=== PATIENT | male | born 2000 | race Caucasian/White ===

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

== ENCOUNTER 2019-02-24 12:28 | Emergency (ER) | payer OTHER ==
[2019-02-24 13:20] LABS: BASOPHILE ABSOLUTE 0.1 Th/cumm (0-0.2); EOSINOPHILE ABSOLUTE 1.3 Th/cmm (0.1-0.4); LYMPHOCYTE ABSOLUTE 1.9 Th/cmm (1.5-3.0); MEAN CORPUSCULAR HEMOGLOBIN 25.8 pg (26.0-30.0); MONOCYTE ABSOLUTE 1.1 Th/cmm (0.3-1.0); NEUTROPHILE ABSOLUTE 6.3 Th/cmm (1.8-8.0); WHITE BLOOD COUNT 10.7 Th/cmm (4.8-10.8)
[2019-02-24 13:22] LABS: % BASOPHILS 0.9 % (0.0-2.0); % EOSINOPHILS 12.4 % (0.0-5.0); % LYMPHOCYTES 17.9 % (20.0-50.0); % MONOCYTES 10.3 % (2.0-10.0); % NEUTROPHILS 58.5 % (40.0-80.0); HEMATOCRIT 37.2 % (41.0-60); HEMOGLOBIN 12.2 gm/dL (12-16); MEAN CELL VOLUME 78.6 fl (80-99); MEAN CORPUSCULAR HGB CONC 32.8 pg (28.0-36.0); MEAN PLATELET VOLUME 7.8 fl; PLATELET COUNT 413 Th/cmm (150-400); RED BLOOD COUNT 4.73 Mil/cmm (4.30-5.70)
[2019-02-24 13:35] LABS: INR 0.95 (0.5-1.4); PROTHROMBIN TIME (TEST) 9.9 SECONDS (9.5-11.5)
[2019-02-24 13:41] LABS: ALB/GLOB RATIO 1.2 (1.0-1.8); ALBUMIN 3.9 gm/dL (4.2-5.5); ALKALINE PHOSPHATASE 42 U/L (34-104); ANION GAP 11.3 (7.0-16.0); BILIRUBIN,TOTAL 0.2 mg/dL (0.3-1.0); BUN - UREA NITROGEN 6 mg/dL (7-25); CALCIUM SERUM 9.2 mg/dL (8.6-10.3); CARBON DIOXIDE 28.4 mEq/L (21.0-31.0); CHLORIDE 102 mEq/L (98-107); CHOLESTEROL 121 mg/dL (<200); CREATININE - SERUM 0.6 mg/dL (0.7-1.3); GFR AFRICAN-AMERICAN > 60.0 ml/min (>90); GFR NON AFRICAN-AMERICAN > 60.0 ml/min; GLUCOSE 94 mg/dL (70-105); HDL -HIGH DENSITY LIPOPROTEIN 35 mg/dL (23-92); POTASSIUM SERUM 3.7 mEq/L (3.5-5.1); SGOT 24 U/L (13-39); SGPT/ALT 49 U/L (7-52); SODIUM SERUM 138 mEq/L (136-145); TOTAL PROTEIN,SERUM 7.1 gm/dL (6.0-8.3); TRIGLYCERIDES 121 mg/dL (<150)
[2019-02-24 14:05] LABS: URINE SOURCE CLEAN C
[2019-02-24 14:08] LABS: URINE BILIRUBIN NEGATIVE (NEGATIVE); URINE BLOOD NEGATIVE (NEGATIVE); URINE GLUCOSE (UA) NEGATIVE (NEGATIVE); URINE KETONE TRACE mg/dL (NEGATIVE); URINE LEUKOCYTE ESTERASE NEGATIVE (NEGATIVE); URINE MICROSCOPIC INDICATED? YES; URINE NITRATE NEGATIVE (NEGATIVE); URINE PH 6.5 (4.6 - 8.0); URINE PROTEIN TRACE mg/dL (NEGATIVE); URINE UROBILINOGEN 0.2 E.U./dL (0.2 - 1.0)
[2019-02-24 14:13] LABS: URINE CLARITY SLIGHT CLOUDY (CLEAR); URINE COLOR YELLOW
[2019-02-24 14:19] LABS: URINE BACTERIA FEW /hpf (NONE SEEN); URINE EPITHELIAL CELLS OCCASIONAL /lpf (FEW); URINE RBC 0-2 /hpf (0-5)
[2019-02-24 14:22] LABS: AMPHETAMINE URINE NEGATIVE (NEGATIVE); BARBITURATES URINE NEGATIVE (NEGATIVE); BENZODIAZEPINES QUAL URINE NEGATIVE (NEGATIVE); CANNABINOID THC NEGATIVE (NEGATIVE); COCAINE METABOLITE QUAL URINE NEGATIVE (NEGATIVE); METHADONE URINE NEGATIVE (NEGATIVE); METHAMPHETAMINES QUAL URINE NEGATIVE (NEGATIVE); OPIATES (MORPHINE) QUAL. URINE NEGATIVE (NEGATIVE); PHENCYCLIDINE (PCP) URINE NEGATIVE (NEGATIVE); TRICYCLICS (TCA) QUAL. URINE NEGATIVE (NEGATIVE)
--- NOTE | 2019-02-24 14:36 | ED Physician Chart ---
ED Chief Complaint/HPI - Patient Information Date Seen:: 02/24/19 Time Seen:: 12:58 History of Present Illness:: diarrhea Allergies:: Allergies Allergy/AdvReac Type Severity Reaction Status Date / Time No Known Allergies Allergy Verified 02/24/19 12:46 Vitals:: Vital Signs - 8 hr 02/24/19 02/24/19 12:46 14:26 Temp 100.1 F 98.9 F HR 88 75 RR 18 13 BP 134/61 130/72 O2 Sat % 97 98 Historian:: Patient Review:: Nurse's Note Reviewed ED Review of Systems - Review of Systems General/Constitutional: No fever, No chills, No weight loss, No weakness, No diaphoresis, No edema, No loss of appetite, Other (this patient is mentally challanged) Skin: No skin lesions, No rash, No bruising Head: No headache, No light-headedness Eyes: No loss of vision, No pain, No diplopia ENT: No earache, No nasal drainage, No sore throat, No tinnitus Neck: No neck pain, No swelling, No thyromegaly, No stiffness, No mass noted Cardio Vascular: No chest pain, No palpitations, No PND, No orthopnea, No edema Pulmonary: No SOB, No cough, No sputum, No wheezing GI: No nausea, No vomiting, No diarrhea, No pain, No melena, No hematochezia, No constipation, No hematemesis G/U: No dysuria, No frequency, No hematuria Musculoskeletal: No bone or joint pain, No back pain, No muscle pain Endocrine: No polyuria, No polydipsia Psychiatric: No prior psych history, No depression, No anxiety, No suicidal ideation Hematopoietic: No bruising, No lymphadenopathy Allergic/Immuno: No urticaria, No angioedema Neurological: No syncope, No focal symptoms, No weakness, No paresthesia, No headache, No seizure, No dizziness, No confusion, No vertigo ED Past Medical History - Past Medical History Obtainable: Yes Past Medical History: Other (obese and mental) Family History: None Social History: Non Smoker, No Alcohol, No Drug Use, Lives With Parents Surgical History: None Psychiatricy History: Dementia Medication: Reviewed Family Medical History - Family Member Mother History Unknown: Yes Ethnicity: Living Status: Still Living Other Medical History: No known family medical problems per mother. ED Physical Exam - Physical Examination General/Constitutional: Awake, Well-developed, well-nourished, Alert, No distress, GCS 15, Non-toxic appearing, Ambulatory Other Gen/Cons comments:: obese and confused at times Head: Atraumatic Eyes: Lids, conjuctiva normal, PERRL, EOMI Skin: Nl inspection, No rash, No skin lesions, No ecchymosis, Well hydrated, No lymphadenopathy ENMT: External ears, nose nl, Nasal exam nl, Lips, teeth, gums nl Neck: Nontender, Full ROM w/o pain, No JVD, No nuchal rigidity, No bruit, No mass, No stridor Respiratory: Nl effort/Exclusion, Clear to Auscultation, No Wheeze/Rhonchi/Rales Cardio Vascular: RRR, No murmur, gallop, rubs, NL S1 S2 GI: No tenderness/rebounding/guarding, No organomegaly, No hernia, Normal BS's, Nondistended, No mass/bruits, No McBurney tenderness : No CVA tenderness Extremities: No tenderness or effusion, Full ROM, normal strength in all extremities, No edema, Normal digits & nails Neuro/Psych: Alert/oriented, DTR's symmetric, Normal sensory exam, Normal motor strength, Judgement/insight normal, Mood normal, Normal gait, No focal deficits Misc: Normal back, No paraspinal tenderness ED Labs/Radiology/EKG Results - Lab Results Results: Laboratory Tests 02/24/19 02/24/19 02/24/19 13:15 13:15 13:15 WBC 10.7 RBC 4.73 Hgb 12.2 Hct 37.2 L MCV 78.6 L MCH 25.8 L MCHC Differential 32.8 RDW 13.0 Plt Count 413 H MPV 7.8 Neutrophils % 58.5 Lymphocytes % 17.9 L Monocytes % 10.3 H Eosinophils % 12.4 H Basophils % 0.9 PT INR PTT (Actin FS) Sodium 138 Potassium 3.7 Chloride 102 Carbon Dioxide 28.4 Anion Gap 11.3 BUN 6 L Creatinine 0.6 L Est GFR ( Amer) > 60.0 Est GFR (Non-Af Amer) > 60.0 BUN/Creatinine Ratio 10.0 Glucose 94 Calcium 9.2 Total Bilirubin 0.2 L AST 24 ALT 49 Alkaline Phosphatase 42 Total Protein 7.1 Albumin 3.9 L Globulin 3.2 Albumin/Globulin Ratio 1.2 Triglycerides 121 Cholesterol 121 LDL Cholesterol Direct 65 L HDL Cholesterol 35 TSH Urine Source Urine Color Urine Clarity Urine pH Ur Specific [place] Urine Protein Urine Glucose (UA) Urine Ketones Urine Blood Urine Nitrate Urine Bilirubin Urine Urobilinogen Ur Leukocyte Esterase Urine RBC Urine WBC Ur Epithelial Cells Urine Bacteria Urine Mucus Urine Opiates Screen Urine Methadone Screen Ur Barbiturates Screen Ur Tricyclics Screen Ur Phencyclidine Scrn Amphetamines Screen U Methamphetamines Scrn U Benzodiazepines Scrn U Cocaine Metab Screen U Cannabinoids Screen 02/24/19 02/24/19 02/24/19 13:15 13:15 13:50 WBC RBC Hgb Hct MCV MCH MCHC Differential RDW Plt Count MPV Neutrophils % Lymphocytes % Monocytes % Eosinophils % Basophils % PT 9.9 INR 0.95 PTT (Actin FS) 26.4 Sodium Potassium Chloride Carbon Dioxide Anion Gap BUN Creatinine Est GFR ( Amer) Est GFR (Non-Af Amer) BUN/Creatinine Ratio Glucose Calcium Total Bilirubin AST ALT Alkaline Phosphatase Total Protein Albumin Globulin Albumin/Globulin Ratio Triglycerides Cholesterol LDL Cholesterol Direct HDL Cholesterol TSH 1.71 Urine Source Urine Color Urine Clarity Urine pH Ur Specific [place] Urine Protein Urine Glucose (UA) Urine Ketones Urine Blood Urine Nitrate Urine Bilirubin Urine Urobilinogen Ur Leukocyte Esterase Urine RBC Urine WBC Ur Epithelial Cells Urine Bacteria Urine Mucus Urine Opiates Screen NEGATIVE Urine Methadone Screen NEGATIVE Ur Barbiturates Screen NEGATIVE Ur Tricyclics Screen NEGATIVE Ur Phencyclidine Scrn NEGATIVE Amphetamines Screen NEGATIVE U Methamphetamines Scrn NEGATIVE U Benzodiazepines Scrn NEGATIVE U Cocaine Metab Screen NEGATIVE U Cannabinoids Screen NEGATIVE 02/24/19 13:50 WBC RBC Hgb Hct MCV MCH MCHC Differential RDW Plt Count MPV Neutrophils % Lymphocytes % Monocytes % Eosinophils % Basophils % PT INR PTT (Actin FS) Sodium Potassium Chloride Carbon Dioxide Anion Gap BUN Creatinine Est GFR ( Amer) Est GFR (Non-Af Amer) BUN/Creatinine Ratio Glucose Calcium Total Bilirubin AST ALT Alkaline Phosphatase Total Protein Albumin Globulin Albumin/Globulin Ratio Triglycerides Cholesterol LDL Cholesterol Direct HDL Cholesterol TSH Urine Source CLEAN C Urine Color YELLOW Urine Clarity SLIGHT CLOUDY Urine pH 6.5 Ur Specific [place] 1.015 Urine Protein TRACE Urine Glucose (UA) NEGATIVE Urine Ketones TRACE Urine Blood NEGATIVE Urine Nitrate NEGATIVE Urine Bilirubin NEGATIVE Urine Urobilinogen 0.2 Ur Leukocyte Esterase NEGATIVE Urine RBC 0-2 H Urine WBC 2-5 Ur Epithelial Cells OCCASIONAL Urine Bacteria FEW Urine Mucus FEW Urine Opiates Screen Urine Methadone Screen Ur Barbiturates Screen Ur Tricyclics Screen Ur Phencyclidine Scrn Amphetamines Screen U Methamphetamines Scrn U Benzodiazepines Scrn U Cocaine Metab Screen U Cannabinoids Screen ED Assessment - Assessment General Assessment: diarrhea hematuria fever ED Septic Shock - . Is Septic Shock (SBP<90, OR Lactate>4 mmol\L) present?: No - <6hrs of presentation: Vital Signs: Vital Signs - 8 hr 02/24/19 02/24/19 12:46 14:26 Temp 100.1 F 98.9 F HR 88 75 RR 18 13 BP 134/61 130/72 O2 Sat % 97 98 ED Reassessment (Disposition) - Reassessment Reassessment Condition:: Unchanged - Diagnosis Diagnosis:: hematuria fever diarrhea - Aftercare/Follow up Instructions Aftercare/Follow-Up Instructions:: Counseled pt regarding lab results/diagnosis & need follow up, Refer to Discharge Instructions, Counseled pt & family regarding lab results/diagnosis & need follow up Medication Prescribed:: [id number], imodium - Patient Disposition Discharge/Transfer:: Home Condition at Disposition:: Unchanged
== END 2019-02-24 14:32 | disposition home or self-care (01) ==
LOC: ER 12:28
DX: R19.7 Diarrhea, unspecified (principal); R50.9 Fever, unspecified; R31.9 Hematuria, unspecified
CPT/HCPCS: 36415-UA; 80053-TC; 80061-TC; 80307; 81001-TC; 84443-TC; 85025-TC; 85610-TC; Z7502